=== PATIENT | female | born 1950 ===

== ENCOUNTER 2017-11-05 10:03 | Outpatient (CLI) | payer OTHER ==
[~2017-11-05] VITALS: Ht 154.9 cm; Wt 60.3 kg
== END 2017-11-05 10:20 | disposition home or self-care (01) ==
LOC: OFIC 805 10:03
DX: R09.81 Nasal congestion (principal); J32.8 Other chronic sinusitis

== ENCOUNTER 2018-05-19 15:42 | Outpatient (CLI) | payer OTHER ==
[~2018-05-19] VITALS: Ht 152.4 cm; Wt 61.7 kg
== END 2018-05-19 16:00 | disposition home or self-care (01) ==
LOC: OFIC 805 15:42
DX: R09.81 Nasal congestion (principal); K21.0 Gastro-esophageal reflux disease with esophagitis; R05 Cough

== ENCOUNTER 2018-06-12 11:14 | Outpatient (CLI) | payer OTHER ==
[~2018-06-12] VITALS: Ht 152.4 cm; Wt 61.7 kg
== END 2018-06-12 11:30 | disposition home or self-care (01) ==
LOC: OFIC 805 11:14
DX: K21.0 Gastro-esophageal reflux disease with esophagitis (principal); R05 Cough; R09.82 Postnasal drip; H61.21 Impacted cerumen, right ear

== ENCOUNTER 2018-09-01 15:21 | Outpatient (CLI) | payer OTHER ==
[~2018-09-01] VITALS: Ht 152.4 cm; Wt 61.7 kg
== END 2018-09-01 15:40 | disposition home or self-care (01) ==
LOC: OFIC 805 15:21
DX: H61.21 Impacted cerumen, right ear (principal); H69.90 Unspecified Eustachian tube disorder, unspecified ear